=== PATIENT | male | born 1995 | race African-American/Black ===

== ENCOUNTER 2017-01-01 18:15 | Emergency (ER) | payer SELFPAY ==
[2017-01-01 18:21] VITALS: BP 171/94; BMI 27.5
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
[2017-01-01] MEDS ORDERED: XYLOCAINE 1 % (PLAIN) ONE (18:50)
--- NOTE | 2017-01-01 19:10 | RAD ---
Left hand three views Indication: Nail in left thumb. Findings: Nail projects over the left thumb, angled radial 2 ulnar in direction, and slightly palm ar e to the distal phalanx. Injury to the bone is not completely excluded but artifact obscures detail. Impression: Metal foreign body in the thumb distal phalanx soft tissues, possibly involving the bone itself. 2 small metal wire like densities protrude from the nail (probably from a nail gun) noted. Reported By:
== END 2017-01-01 20:02 | disposition home or self-care (01) ==
LOC: ER 18:35
PROC: 0HCGXZZ Extirpation of Matter from Left Hand Skin, External Approach (ICD-10-PCS; principal; 2017-01-01)
DX: S61.102A Unspecified open wound of left thumb with damage to nail, initial encounter (principal); W29.4XXA Contact with nail gun, initial encounter; Y92.9 Unspecified place or not applicable
CPT/HCPCS: 10120; 73130; 99282; J2001